=== PATIENT | male | born 2000 | race Caucasian/White ===

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

== ENCOUNTER 2023-01-10 18:31 | Emergency (ER) | payer SELFPAY ==
[~2023-01-10] VITALS: Ht 185.4 cm; Wt 88.5 kg
[2023-01-10 18:36] VITALS: BP 143/104
[2023-01-10] MEDS ORDERED: CEFDINIR300 MG PO (18:38)
[2023-01-10 18:45] VITALS: BP 132/96
[2023-01-10 19:09] VITALS: BP 122/80
== END 2023-01-10 19:10 | disposition home or self-care (01) | DRG 605 ==
LOC: ED 18:31
DX: S10.95XA Superficial foreign body of unspecified part of neck, initial encounter (principal); W45.8XXA Other foreign body or object entering through skin, initial encounter

== ENCOUNTER 2024-04-20 11:25 | Emergency (ER) | payer SELFPAY ==
[~2024-04-20] VITALS: Ht 185.4 cm; Wt 111.0 kg
[~2024-04-20 11:25] MED LIST changes: +CEFDINIR300 MG PO
[2024-04-20] MEDS ORDERED: ASPIRIN 81 MG/TAB PO ONE (11:30)
[2024-04-20 11:54] LABS: BASO% 0.3 % (0-3); EOS% 2.2 % (0-8); HEMATOCRIT 45.7 % (39.0-50.0); HEMOGLOBIN 15.3 g/dl (14.0-18.0); LYMPH% 22.2 % (15-41); MEAN CELL VOLUME 90.1 fL CALC (80.0-100.0); MEAN CORPUSCULAR HGB 30.2 pG CALC (26.0-32.0); MEAN CORPUSCULAR HGB CONC 33.5 g/dL CAL (32.0-36.0); MONO% 10.6 % (2-13); NEUT# 3.85 thou/uL (1.82-7.42); NEUT% 64.7 % (42-76); RED BLOOD COUNT 5.07 mill/uL (4.70-6.10); RED CELL DISTRI WIDTH 12.7 % (11.5-15.5)
[2024-04-20 12:09] LABS: ALKALINE PHOSPHATASE 56 u/l (38-126); ANION GAP 10 (6-22 (CALC)); BILIRUBIN, TOTAL 0.5 mg/dL (0.2-1.3); BUN 15 mg/dL (9-20); BUN/CREATININE RATIO 18 (12-20 (CALC)); CARBON DIOXIDE 25 mmol/l (22-30); CHLORIDE 111 mmol/l (95-108); CREATININE 0.8 mg/dL (0.7-1.3); ESTIMATED GFR 127 ML/MIN (>=90 (CALC)); SGOT/AST 35 u/l (17-59); SODIUM 142 mmol/l (137-146); TOTAL PROTEIN 8.7 g/dL (6.3-8.2)
[2024-04-20 13:00] VITALS: BP 132/90
== END 2024-04-20 13:13 | disposition home or self-care (01) | DRG 313 ==
LOC: ED 11:25
PROVIDERS: Family Medicine
DX: R07.9 Chest pain, unspecified (principal)